=== PATIENT | male | born 2000 | race Two or more races ===

== ENCOUNTER 2022-07-17 16:49 | Emergency (ER) | payer MEDICAID, OTHER ==
[~2022-07-17] VITALS: Ht 172.7 cm; Wt 108.9 kg
[2022-07-17 17:42] VITALS: BP 130/83
--- NOTE | 2022-07-17 19:01 | NUR ---
22 y/o male bib mother from home, c/o chest pain, cough, trouble sleeping for 2 days. mother reports pt has been coughing for 19 days and states that "he sounds congested, but is having trouble getting the mucous out". pt has been seen by pcp and was given prescription for azithromycin, promethazine, and guaifenesin. father is sick with same s/s at home. pmh: cardiac disorder, down syndrome nka med: promethazine
--- NOTE | 2022-07-17 19:14 | NUR ---
PT AMBULATED TO BED 10.
--- NOTE | 2022-07-17 19:17 | NUR ---
Pt report given to KARINA GRACIA. Transfer of care at this time.
--- NOTE | 2022-07-17 19:18 | NUR ---
Dilshad aburto in [facility] - 07/17/22 at 1920 by [id number] Patient taken to bed 10.
--- NOTE | 2022-07-17 19:46 | NUR ---
Blood for labwork drawn. Patient tolerated well, Phelbotomist reported, is able to drawn only for CMP, Dr. Petersen notified.
[2022-07-17 20:32] LABS: ALBUMIN 3.3 g/dL (3.4-5.0); ANION GAP 13.8 (8-16); ASPARTATE AMINOTRANSFERASE 44 U/L (15-37); CARBON DIOXIDE 24.1 mmol/L (21-32); CHLORIDE 106 mmol/L (98-107); GFR ARICAN-AMERICAN 121 mL/min (>90); GLUCOSE 113 mg/dL (74-106); POTASSIUM 3.9 mmol/L (3.5-5.1); SODIUM SERUM 140 mmol/L (136-145); TOTAL BILIRUBIN 0.3 mg/dL (0.0-1.0); UREA NITROGEN, BLOOD 14 mg/dL (7-18)
[2022-07-17] MEDS ORDERED: ALBU0.0912 IH (21:00)
[2022-07-17 21:08] LABS: BASOPHILS # (AUTO) 0.1 K/uL (0.00-0.22); BASOPHILS % (AUTO) 0.6 % (0.0-2.0); EOSINOPHILS # (AUTO) 0.1 K/uL (0-0.4); EOSINOPHILS % (AUTO) 0.8 % (0.0-4.0); HEMATOCRIT 43.9 % (36-52); LYMPHOCYTES # (AUTO) 2.4 K/uL (2.0-11.5); LYMPHOCYTES % (AUTO) 28.4 % (20.5-51.1); MEAN CORPUSCULAR HEMOGLOBIN 34 pg (27-31); MEAN CORPUSCULAR HGB CONC 34 g/dL (33-37); MEAN CORPUSCULAR VOLUME 100.5 fL (80-94); MONOCYTES # (AUTO) 0.7 K/uL (0.8-1.0); MONOCYTES % (AUTO) 8.6 % (1.7-9.3); NEUTROPHILS # (AUTO) 5.3 K/uL (1.8-7.7); NEUTROPHILS % (AUTO) 61.6 % (42.2-75.2); PLATELET COUNT (AUTO) 233 K/uL (140-450); RED BLOOD CELL COUNT(AUTO) 4.37 MIL/uL (4.20-6.10); RED CELL DISTRIBUTION WIDTH 14.7 % (11.6-13.7); WHITE BLOOD COUNT (AUTO) 8.6 K/uL (4.8-10.8)
[2022-07-17 22:22] VITALS: BP 121/85
--- NOTE | 2022-07-17 22:23 | NUR ---
Patient discharged with v/s stable. Written and verbal after care instructions given and explained to patient's mother. Patient alert, oriented and patient's mother verbalized understanding of instructions. Ambulatory with steady gait. All questions addressed prior to discharge. ID band removed. Patient advised to follow up with PMD. Rx given to patient's mother. Patient's mother educated on indication of medication including possible reaction and side effects. Opportunity to ask questions provided and answered.
== END 2022-07-17 22:23 | disposition home or self-care (01) ==
LOC: MED 16:49
DX: R05.9 Cough, unspecified (principal); Z20.822 Contact with and (suspected) exposure to COVID-19; Z11.52 Encounter for screening for COVID-19
CPT/HCPCS: 36415; 71046; 80053; 84484; 85025; 93005; 99285